=== PATIENT | male | born 1940 | race Caucasian/White ===

== ENCOUNTER → 2019-06-14 | Outpatient (CLI) | payer MEDICARE, OTHER ==
[~2019-06-14] MED LIST: ALBU90OI INH; ASPI325 PO; CAL MAG ZINC +1 EAC1 PO; CEFUROXIME PO; Ceftriaxone2 G1; Depo-Testos200 MG/ML IM; FURO80 PO; GUAI600T33 PO; HYDR1TAB94 PO; LISI20 PO; MAGOXI400 PO; MELA3 PO; METPRE4DP PO; MULVITMIND PO; NEBI5 PO; NIFE60ER PO; PANT40 PO; POTCHL20ER PO; Percocet 10-321 EACH PO; SACC250C PO; SIMV10 PO; SPIR50 PO
[2019-06-14 18:39] LABS: Body Fluid Crystals POS (NEGATIVE)
[2019-06-14 19:01] LABS: WBC Count, Synovial Fluid 159 /mm3 (0-180)
[2019-06-14 19:26] LABS: Appearance, Synovial Fluid Clear (Clear); Color, Synovial Fluid Yellow (None-P Yel); RBC Count, Synovial Fluid 83 /mm3 (0-0)
[2019-06-14 19:31] LABS: Lymphs, Synovial Fluid 33 % (0-15); Monocytes/Macrophages, Synovia 32 % (0-65); Neutrophils, Synovial Fluid 34 % (0-24); Other Cells, Synovial Fluid 1 % (0-0)
== END | disposition home or self-care (01) ==
LOC: LAB 12:00 → LAB SHORT 12:00
PROVIDERS: Internal Medicine
DX: M17.0 Bilateral primary osteoarthritis of knee (principal); M25.461 Effusion, right knee; M25.462 Effusion, left knee
CPT/HCPCS: 87205; 89051; 89060

== ENCOUNTER 2020-07-13 10:37 | Day surgery (SDC) | payer MEDICARE, OTHER ==
[~2020-07-13] VITALS: Ht 177.8 cm; Wt 101.2 kg
[~2020-07-13 10:37] MED LIST changes: +ALLO100 PO; +GABA300 PO
--- NOTE | 2020-07-13 18:40 | NUR ---
ADMIT NOTE PT ADMIT TO UNIT POST OP RIGHT TOTAL KNEE REPLACEMENT. PATIENT GROGGY WHEN IN ROOM. ABLE TO WIGGLE RIGHT FOOT AND TOES. REPORTS SENSATION TO RIGHT FOOT AND RIGHT THIGH. VSS. 2L O2 VIA NC. AQUACEL, UNA HOSE, PAS, AND POLAR PACK IN PLACE TO RIGHT LEG. IV FLUIDS RUNNING. DENIES PAIN AT THIS TIME. PT ASSISTED TO CALL FAMILY MEMBERS ON CELL PHONE. RESTING IN BED AT THIS TIME.
[2020-07-14 03:47] LABS: BASOPHILS ABSOLUTE AUTO 0.02 K/mm3 (0.00-0.23); BASOPHILS PERCENT AUTO 0 % (0-2); EOSINOPHILS PERCENT AUTO 0 % (0-6); Hematocrit 37.2 % (37.0-53.0); Hemoglobin 12.4 g/dL (13.5-17.5); IMMATURE GRAN ABSOLUTE AUTO 0.07 K/mm3 (0.00-0.10); IMMATURE GRAN PERCENT AUTO 1 % (0-1); LYMPHOCYTES ABSOLUTE AUTO 0.66 K/mm3 (0.84-5.20); LYMPHOCYTES PERCENT AUTO 4 % (21-46); MONOCYTES ABSOLUTE AUTO 0.98 K/mm3 (0.16-1.47); MONOCYTES PERCENT AUTO 6 % (4-13); Mean Corpuscular HGB 32.3 pg (26.0-34.0); Mean Corpuscular HGB Conc 33.3 g/dL (31.5-36.5); Mean Corpuscular Volume 97 fL (80-100); Mean Platelet Volume 10.5 fL (9.1-12.4); NEUTROPHILS ABSOLUTE AUTO 13.53 K/mm3 (1.96-9.15); NEUTROPHILS PERCENT AUTO 89 % (41-73); Platelet Count 202 K/mm3 (150-400); RDW Coefficient Variation 14.1 % (11.7-14.2); RDW Standard Deviation 50.4 fL (35.1-46.3); Red Blood Cell Count 3.84 M/mm3 (4.30-5.90); White Blood Cell Count 15.26 K/mm3 (4.00-11.30)
--- NOTE | 2020-07-14 03:51 | NUR ---
SHIFT SUMMARY A/OX4, PLEASANT AND COOPERATIVE WITH CARE. SLEPT T/O THE NIGHT. MEDICATED FOR PAIN PER EMAR. DRESSINGS TO R. LEG C/D/I. VSS, NO ACUTE CHANGES AT THIS TIME. BED IN LOWEST POSITION WITH CALL LIGHT IN REACH. WILL CONTINUE TO MONITOR AND REPORT TO ONCOMING RN.
[2020-07-14 04:00] LABS: Anion Gap 2 mmol/L (6-16); Blood Urea Nitrogen 14 mg/dL (8-24); Bun/Creatinine Ratio 17.4 (12.0-20.0); CO2, Blood 29 mmol/L (21-32); Calcium, Blood 8.1 mg/dL (8.5-10.1); Chloride, Blood 106 mmol/L (98-108); Glomerular Filtration Rate >60 (60-); Glucose, Blood 132 mg/dL (70-99); Magnesium, Blood 1.9 mg/dL (1.6-2.4); Potassium, Blood 4.7 mmol/L (3.5-5.5); Sodium, Blood 137 mmol/L (136-145)
--- NOTE | 2020-07-14 12:48 | NUR ---
07/14/20 1248 Jenni Kee VERIFICATIONS: EDIT CHART.
--- NOTE | 2020-07-14 18:21 | NUR ---
SHIFT SUMMARY PT A/O X4; PLEASANT AND COOPERATIVE WITH CARE. PT CLEARED BY PHYSICAL THERAPY TO LEAVE TODAY BUT HAS NOT BEEN ABLE TO VOID ON HIS OWN. RAMIREZ CATHETER PLACED AND PT IS TO RECEIVE BLADDER TRAINING OVER NIGHT. PT ALSO EXPERIENCING BLEEDING AT HIS INCISION SITE. SURGEON NOTIFIED AND NEW DRESSING WITH ADDITONAL COMPRESSION APPLIED. VSS.
--- NOTE | 2020-07-15 05:14 | NUR ---
SHIFT SUMMARY: SIN IS A&OX4. VSS, NO ACUTE EVENTS OVERNIGHT. RAMIREZ PATENT, BLADDER TRAINING IN PROGRESS. HE REPORTS ADEQUATE PAIN CONTROL WITH APAP, TORADOL, AND OXYCODONE. ONE PERSON ASSIST WITH THE GAIT BELT AND FWW, TOLERATING PO INTAKE WELL. LATOYA WRAP TO R KNEE WITH NO NEW DRAINAGE, UNA HOSE AND PAS IN PLACE. HE IS LYING IN BED WITH HIS CALL LIGHT IN REACH. WILL REPORT TO DAY SHIFT RN.
[2020-07-15] MEDS ORDERED: ACET500 PO (12:45)
[2020-07-15] MEDS ORDERED: OXAYDO5 M1 PO (12:45)
--- NOTE | 2020-07-15 13:42 | NUR ---
DISCHARGE NOTE: PATIENT WAS EDUCATED ON DISCHARGE INSTRUCTIONS. HE VERBALIZED UNDERSTANDING OF INSTRUCTIONS. HE IS ALERT AND ORIENTED X4. VS ARE WNL AND IS ON RA. PAIN IS CONTROLLED WITH PO NARCOTICS. HE HAS HIS HARD PERSCRIPTIONS IN HIS FOLDER THAT IS WITH HIS ITEMS. HE IS DRESSED AND SITTING UP IN THE CHAIR. PATIENT IS CURRENTLY WAITING FOR FAMILY TO COME AND PICK HIM UP AT 1400. ONCE FAMILY IS HERE HE WILL BE WHEELCHAIRED OUT TO THE CAR. IV WAS DISCONTINUED AND IS WNL.
[2020-09-30] MEDS ORDERED: MELATONIN5 M1 PO (09:50)
[2020-09-30] MEDS ORDERED: CALCIUM MAGNES1 EAC1 PO (09:50)
[2020-09-30] MEDS ORDERED: ZOCOR20 MG PO (09:51)
[2020-09-30] MEDS ORDERED: ALLO100 PO (09:51)
[2020-09-30] MEDS ORDERED: ANDRODERM1 EAC3 (09:51)
[2020-09-30] MEDS ORDERED: LISI20 PO (09:51)
[2020-09-30] MEDS ORDERED: FURO80 PO (09:52)
[2020-09-30] MEDS ORDERED: NIFE60ER PO (09:53)
[2020-09-30] MEDS ORDERED: POTCHL20ER PO (09:55)
[2020-09-30] MEDS ORDERED: Aspirin325 MG PO (09:57)
[2020-09-30] MEDS ORDERED: GABA100 PO (10:21)
[2020-09-30] MEDS ORDERED: DEPO-TESTO200 MG/14 IM (10:22)
== END 2020-07-15 14:37 | disposition home or self-care (01) ==
LOC: ORSCMMR 10:37 → SURS 10:47 → PRE IP 10:47 → SURS 07-15 14:37 → ORSCMMR 07-15 14:37
PROVIDERS: Orthopaedic Surgery
PROC: 0SRC0J9 Replacement of Right Knee Joint with Synthetic Substitute, Cemented, Open Approach (ICD-10-PCS; principal; 2020-07-13 13:45)
PROC: 8E0Y0CZ Robotic Assisted Procedure of Lower Extremity, Open Approach (ICD-10-PCS; principal; 2020-07-13 13:45)
DX: M17.11 Unilateral primary osteoarthritis, right knee (principal); I10 Essential (primary) hypertension; J44.9 Chronic obstructive pulmonary disease, unspecified; Z87.891 Personal history of nicotine dependence; G47.33 Obstructive sleep apnea (adult) (pediatric); E78.5 Hyperlipidemia, unspecified; Z79.899 Other long term (current) drug therapy; Z79.82 Long term (current) use of aspirin
CPT/HCPCS: 27447; S2900; 36415; 73560-RT; 80048; 83735; 85025; 97110; 97110-CQ; 97116; 97116-CQ; 97162; 97530; 97530-CQ; A9270; C1713; C1776; J0171; J0690; J0735; J1100; J1885; J2250; J2370; J2405; J2704; J2795; J3010; J7120

== ENCOUNTER 2020-10-12 06:06 | Day surgery (SDC) | payer MEDICARE, OTHER ==
[~2020-10-12] VITALS: Ht 175.3 cm; Wt 99.1 kg
[~2020-10-12 06:06] MED LIST changes: +ACET500 PO; +ANDRODERM1 EAC3; +Aspirin325 MG PO; +CALCIUM MAGNES1 EAC1 PO; +DEPO-TESTO200 MG/14 IM; +GABA100 PO; +MELATONIN5 M1 PO; +OXAYDO5 M1 PO; +ZOCOR20 MG PO
[2020-10-12] MEDS ORDERED: Aspir 8181 MG PO (06:40)
--- NOTE | 2020-10-12 06:50 | NUR ---
Ambulatory in Day Surgery WITH CANE, NAME TAG PLACED ON CANE. History, Chart, Medications and Allergies reviewed before start of procedure. Lungs clear T/O to Auscultation. Patient confirms NPO status and agrees with scheduled surgery. Pre-Op teaching done. Pt verbalizes understanding.
--- NOTE | 2020-10-12 10:07 | NUR ---
10/12/20 Mimi Mac NO SPECIMEN TO SEND PER SURGEON. RBVO TO SR. STEPHEN M.D./CHIN YODER
--- NOTE | 2020-10-12 11:30 | NUR ---
pt transferred to room on own bed, a/o x 4, pleasant/cooperative; pt oriented to room/call light. pt denies pain r/t spinal anesthesia, is unable to wiggle toes at this time. post op vs commenced and stable. operative limb baseline temp, pink, cap refill <3 sec. dressing c/d/i.
--- NOTE | 2020-10-12 17:09 | NUR ---
SHIFT SUMMARY: VSS, NO ACUTE CHANGES. PT REMAINED A/O X 4, PLEASANT/COOPERATIVE, AT BASELINE NEURO. PATIENT COMPLETED HIS FIRST ROUND OF PT, HAS VOIDED >300 ML URINE, IS TOLERATED PO INTAKE WITH NO N/V. PT REPORTS PAIN CONTROLLED "WELL" PER MAR. PT IS UP IN CHAIR CURRENTLY. PT'S FAMILY MEMBERS HAVE VISITED THIS SHIFT, THERAPY CLAIMS ADJUSTER HERE FOR FIRST THERAPY SESSION. L KNEE AQUACELL DRESSING COVERED WITH LATOYA BANDAGE C/D/I. CRYOTHERAPY, JUAN BOYD IN PLACT. SECOND DOSE OF TXA COMPLETED PER MAY.
--- NOTE | 2020-10-13 04:18 | NUR ---
SHIFT SUMMARY PT HAS RESTED WELL T/O NIGHT. 1 ROXICODONE FOR PAIN MANAGEMENT. LATOYA WRAP TO LEFT KNEE REMAINS CDI WITH POLAR PACK IN PLACE. UP WITH 1 MINIMAL ASSIST USING FWW + GB. GUERO REG DIET. IV SL. PLAN TO DISCHARGE HOME TODAY. CALL LIGHT WITHIN REACH.
[2020-10-13 04:52] LABS: BASOPHILS ABSOLUTE AUTO 0.04 K/mm3 (0.00-0.23); BASOPHILS PERCENT AUTO 0 % (0-2); EOSINOPHILS ABSOLUTE AUTO 0.26 K/mm3 (0.00-0.68); EOSINOPHILS PERCENT AUTO 3 % (0-6); Hematocrit 40.9 % (37.0-53.0); Hemoglobin 13.7 g/dL (13.5-17.5); IMMATURE GRAN ABSOLUTE AUTO 0.03 K/mm3 (0.00-0.10); IMMATURE GRAN PERCENT AUTO 0 % (0-1); LYMPHOCYTES ABSOLUTE AUTO 0.74 K/mm3 (0.84-5.20); LYMPHOCYTES PERCENT AUTO 7 % (21-46); MONOCYTES PERCENT AUTO 8 % (4-13); Mean Corpuscular HGB 32.5 pg (26.0-34.0); Mean Corpuscular HGB Conc 33.5 g/dL (31.5-36.5); Mean Corpuscular Volume 97 fL (80-100); Mean Platelet Volume 10.6 fL (9.1-12.4); NEUTROPHILS ABSOLUTE AUTO 8.67 K/mm3 (1.96-9.15); NEUTROPHILS PERCENT AUTO 82 % (41-73); Platelet Count 176 K/mm3 (150-400); RDW Coefficient Variation 14.3 % (11.7-14.2); Red Blood Cell Count 4.22 M/mm3 (4.30-5.90); White Blood Cell Count 10.54 K/mm3 (4.00-11.30)
[2020-10-13 05:14] LABS: Anion Gap 3 mmol/L (6-16); Blood Urea Nitrogen 14 mg/dL (8-24); Bun/Creatinine Ratio 17.6 (12.0-20.0); CO2, Blood 30 mmol/L (21-32); Calcium, Blood 8.1 mg/dL (8.5-10.1); Chloride, Blood 105 mmol/L (98-108); Creatinine, Blood 0.79 mg/dL (0.60-1.20); Glomerular Filtration Rate >60 (60-); Glucose, Blood 104 mg/dL (70-99); Magnesium, Blood 1.9 mg/dL (1.6-2.4); Potassium, Blood 3.8 mmol/L (3.5-5.5); Sodium, Blood 138 mmol/L (136-145)
[2020-10-13] MEDS ORDERED: ACET500 PO (09:51)
[2020-10-13] MEDS ORDERED: OXYC5 PO (09:52)
--- NOTE | 2020-10-13 12:26 | NUR ---
DISCHARGE PT PROVIDED WITH WRITTEN AND VERBAL DISCHARGE INSTRUCTIONS, PT AND FAMILY REPORTED UNDERSTANDING. PT CLEARED THERAPY AND MET ALL GOALS. HOME HEALTH WAS ARRANGED. DRESSINGS SENT HOME. PT EDUCATED TO TAKE ASPIRIN 81MG BID X1 MONTH, THEN RESUME HIS ORIGINAL DOSING OF ASA DAILY. PAIN MANAGED AT TIME OF DISCHARGE. PT ALERT, ORIENTED AND PLEASED WITH DISCHARGE PLAN. PT'S SPOUSE AND DAUGHTER PRESENT AND SUPPORTIVE DURING DISCHARGE PROCESS. PT ESCORTED OUT IN W/C.
== END 2020-10-13 12:20 | disposition home or self-care (01) ==
LOC: ORSCMMR 06:06 → ORD 07:30 → ORSCMMR 07:30 → SURS 11:24 → ORSCMMR 10-13 12:20
PROVIDERS: Orthopaedic Surgery
PROC: 0SRD0JA Replacement of Left Knee Joint with Synthetic Substitute, Uncemented, Open Approach (ICD-10-PCS; principal; 2020-10-12 07:30)
PROC: 8E0YXBZ Computer Assisted Procedure of Lower Extremity (ICD-10-PCS; principal; 2020-10-12 07:30)
DX: M17.12 Unilateral primary osteoarthritis, left knee (principal); I10 Essential (primary) hypertension; G47.33 Obstructive sleep apnea (adult) (pediatric); E78.5 Hyperlipidemia, unspecified; E66.9 Obesity, unspecified; Z68.32 Body mass index [BMI] 32.0-32.9, adult; Z79.82 Long term (current) use of aspirin; Z79.899 Other long term (current) drug therapy
CPT/HCPCS: 36415; 73560-LT; 80048; 83735; 85025; 97110; 97116; 97162; 97530; A9270; C1713; C1776; J0171; J0690; J0735; J1170; J1885; J2370; J2704; J2795; J3010; J7120

== ENCOUNTER 2020-10-16 12:17 | Inpatient (IN) | payer MEDICARE, OTHER ==
[~2020-10-16] VITALS: Ht 177.8 cm; Wt 99.4 kg
[~2020-10-16 12:17] MED LIST changes: +Aspir 8181 MG PO; +OXYC5 PO
--- NOTE | 2020-10-16 13:22 | NUR ---
PT ADMITTED TO ROOM 233. A/O X4. OREINTED TO ROOM AND CALL LIGHT. DENIES PAIN AT THIS TIME. LATOYA WRAP AND GAUZE DRESSING IN PLACE TO L KNEE. PT REPORTS KNEE BLEEDING AT HOME, STATES IT SHADOWED THROUGH TWO LAYERS OF LATOYA WRAP PRIOR TO VISITING DR MITCHELL THIS MORNING.
--- NOTE | 2020-10-16 14:40 | NUR ---
ICE PACK IN PLACE, L LEG ELEVATED ON PILLOWS.
[2020-10-16 14:54] LABS: BASOPHILS ABSOLUTE AUTO 0.03 K/mm3 (0.00-0.23); BASOPHILS PERCENT AUTO 0 % (0-2); EOSINOPHILS ABSOLUTE AUTO 0.21 K/mm3 (0.00-0.68); EOSINOPHILS PERCENT AUTO 2 % (0-6); Hematocrit 38.8 % (37.0-53.0); Hemoglobin 12.8 g/dL (13.5-17.5); IMMATURE GRAN ABSOLUTE AUTO 0.04 K/mm3 (0.00-0.10); IMMATURE GRAN PERCENT AUTO 0 % (0-1); LYMPHOCYTES ABSOLUTE AUTO 0.84 K/mm3 (0.84-5.20); LYMPHOCYTES PERCENT AUTO 7 % (21-46); MONOCYTES ABSOLUTE AUTO 0.95 K/mm3 (0.16-1.47); MONOCYTES PERCENT AUTO 8 % (4-13); Mean Corpuscular HGB 31.8 pg (26.0-34.0); Mean Corpuscular Volume 97 fL (80-100); Mean Platelet Volume 10.7 fL (9.1-12.4); NEUTROPHILS ABSOLUTE AUTO 9.29 K/mm3 (1.96-9.15); NEUTROPHILS PERCENT AUTO 82 % (41-73); Platelet Count 234 K/mm3 (150-400); RDW Coefficient Variation 13.8 % (11.7-14.2); RDW Standard Deviation 49.3 fL (35.1-46.3); Red Blood Cell Count 4.02 M/mm3 (4.30-5.90); White Blood Cell Count 11.36 K/mm3 (4.00-11.30)
[2020-10-16 15:08] LABS: Anion Gap 2 mmol/L (6-16); Blood Urea Nitrogen 16 mg/dL (8-24); Bun/Creatinine Ratio 19.5 (12.0-20.0); CO2, Blood 32 mmol/L (21-32); Calcium, Blood 9.1 mg/dL (8.5-10.1); Chloride, Blood 100 mmol/L (98-108); Creatinine, Blood 0.82 mg/dL (0.60-1.20); Glomerular Filtration Rate >60 (60-); Glucose, Blood 140 mg/dL (70-99); Potassium, Blood 4.3 mmol/L (3.5-5.5); Sodium, Blood 134 mmol/L (136-145)
--- NOTE | 2020-10-16 17:57 | NUR ---
SHIFT SUMMARY PT ADMITTED THIS AFTERNOON FOR POST-OP BLEEDING S/P L KNEE REPLACEMENT. LATOYA WRAP WITH GAUZE IN PLACE ON ADMIT, CHANGED BY DR MITCHELL AROUND 1700. PT HAS TAKEN TYLENOL FOR PAIN WITH GOOD RESULTS. HE DID REQUEST OXYCODONE, WHICH WAS ORDERED, THEN DECIDED TO WAIT TO TAKE IT. ICE PACK IN PLACE, LEG ELEVATED ON PILLOWS. PT USING URINAL TO VOID. PLAN IS TO BE NPO AT MIDNIGHT FOR POSSIBLE PROCEDURE IN MORNING. PT AGREEABLE TO THIS.
--- NOTE | 2020-10-17 00:10 | NUR ---
IV OBTAINED EASILY FIRST ATTEMPT.STRONG BLOOD RETURN, FLUSHING FREELY.18 GUAGE FOR POSSIBILITY OF OR. AFTER IV SECURED AND FLUSHED,PT REPORTED "SOME " TINGLING TO R THUMB AND FIRST FINGER. RADIAL PULSE PALBABLE AND STRONG. WIGGLES FINGERS WITHOUT DIFF. PT WIGGLED FINGERS,REPORTED TINGLING RESOLVING.HOWEVER,I HAD HOOP DRIVING MACHINE OPERATOR HELPER HERIBERTO CHECK WELL AND NOTED IV SAME MY CHECK. I QUESTIONED PT FURTHER,HE THEN REPORTED THIS IS INTERMITTENTLY HIS BASELINE AT HOME, AND ALSO REPORTED HIS L FINGERS ALSO BECAME TINGLY AFTER IV WAS PLACED.PT LAUGHING REPORTED THIS "SYMPATHY TINGLING"ALTHOUGH I HAD PT RAISE ARMS AND WIGGLE ALL FINGERS.WHICH PT THEN REPORTED BILAT TINGLING RESOLVED.ADVISED PT TO CALL ME FOR ANY CHANGES FROM HIS BASLINE.
--- NOTE | 2020-10-17 07:20 | NUR ---
RECVD REPORT FROM PREVIOUS SHIFT CHIN BECK, PT LYING IN BED, A/O X 4, PLEASANT/COOPERATIVE. PT DENIES PAIN AT THIS TIME. BED IN LOWEST POSITION, BED RAILS UP X 2, CALL LIGHT WITHIN REACH.
--- NOTE | 2020-10-17 08:05 | NUR ---
SUMMARY PT NPO. IV FLUIDS INFUSING. NO ACTIVE BLEED NOTED DURING THIS SHIFT.
--- NOTE | 2020-10-17 14:03 | NUR ---
assumed pt care pt back in the or
--- NOTE | 2020-10-17 14:52 | NUR ---
10/17/20 1452 Cyn Falcon ANCEF 2 GRAMS IVPB GIVEN BY DR Fabien SALGADO AT 1449.
--- NOTE | 2020-10-17 16:32 | NUR ---
PT ARRIVED BACK TO ROOM 233 FROM PACU S/P I&D PT REPORTS PAIN 4/10 WITH BURNING TO THE TOP OF THE KNEE AND THROBBING PT HAS A LATOYA WRAP FROM THE TOP OF THE LEG TO THE FOOT C/D/I PT REPORTS BEING HUNGRY PO OXY GIVEN WITH CRACKERS AND JELLO FAMILY AT BEDSIDE
--- NOTE | 2020-10-17 17:41 | NUR ---
PT EATING DINNER FAMILY WENT HOME MEDS GIVEN SCHED
--- NOTE | 2020-10-17 18:59 | NUR ---
no bleeding noted ice placed po tylenol given
--- NOTE | 2020-10-18 07:15 | NUR ---
RECVD REPORT FROM PREVIOUS SHIFT CHIN BECK. PT AWAKE IN BED, REPORTS PAIN CONTROLLED TO 3-4/10, TOLERABLE. NO BLEEDING/SHADOWING ON DRESSING, C/D/I. BED IN LOWETS POSITION, BED RAILS UP X 2, CALL LIGHT WITHIN REACH.
--- NOTE | 2020-10-18 07:48 | NUR ---
SUMMARY PT WITH NO BLEEDING NOTED TONIGHT.PLANNING FOR DISCHARGE TODAY.
--- NOTE | 2020-10-18 17:14 | NUR ---
shift summary: vss, no acute changes, pt remained a/o x 4, pleasant/cooperative. pt up in chair following PT for remainder of shift. follwoing PT incision bleeding from proximal knee. Dr Monteiro rounding on pt and changed dressing. pt tolerating PO intake, voiding, no bm this shift. pt rates pain at 2-3/10 following medicating per mar, rates pain tolerable.
--- NOTE | 2020-10-19 08:02 | NUR ---
SUMMARY NO ACUTE CHANGES THIS SHIFT.
[2020-10-19 09:24] LABS: International Normalized Ratio 1.02
[2020-10-19 10:06] LABS: BASOPHILS ABSOLUTE AUTO 0.09 K/mm3 (0.00-0.23); BASOPHILS PERCENT AUTO 1 % (0-2); EOSINOPHILS ABSOLUTE AUTO 0.29 K/mm3 (0.00-0.68); EOSINOPHILS PERCENT AUTO 3 % (0-6); Hematocrit 38.1 % (37.0-53.0); Hemoglobin 12.2 g/dL (13.5-17.5); IMMATURE GRAN ABSOLUTE AUTO 0.03 K/mm3 (0.00-0.10); IMMATURE GRAN PERCENT AUTO 0 % (0-1); LYMPHOCYTES ABSOLUTE AUTO 1.31 K/mm3 (0.84-5.20); LYMPHOCYTES PERCENT AUTO 13 % (21-46); MONOCYTES ABSOLUTE AUTO 0.87 K/mm3 (0.16-1.47); MONOCYTES PERCENT AUTO 8 % (4-13); Mean Corpuscular HGB 31.2 pg (26.0-34.0); Mean Corpuscular Volume 97 fL (80-100); Mean Platelet Volume 10.1 fL (9.1-12.4); NEUTROPHILS ABSOLUTE AUTO 7.71 K/mm3 (1.96-9.15); NEUTROPHILS PERCENT AUTO 75 % (41-73); Platelet Count 310 K/mm3 (150-400); RDW Coefficient Variation 13.7 % (11.7-14.2); RDW Standard Deviation 49.1 fL (35.1-46.3); Red Blood Cell Count 3.91 M/mm3 (4.30-5.90)
--- NOTE | 2020-10-19 11:25 | NUR ---
dr matthews roundmiah on pt, changed dressing, dc home today with orders to minimalize walking, restricted to bathroom visits/walking in house 5 x a day, avoid stairs. This RN will instruct pt's on unwrapping/rewrapping dressing as needed and provide supplies.
--- NOTE | 2020-10-19 13:31 | NUR ---
provided pt and family members with discharge instructions, printed materials, and demonstration/talk back in dressing changes; family members state understanding of this. provided dressing change supplies, pt's daugher took pt's belongings to vehicle; pt transported to awaiting vehicle via wheelchair
== END 2020-10-19 13:32 | disposition home or self-care (01) | DRG 908 ==
LOC: SURS 12:17
PROVIDERS: Orthopaedic Surgery; ADMIT Orthopaedic Surgery
PROC: 0SBD0ZZ Excision of Left Knee Joint, Open Approach (ICD-10-PCS; 2020-10-17)
PROC: 0S9D0ZZ Drainage of Left Knee Joint, Open Approach (ICD-10-PCS; principal; 2020-10-17 11:30)
DX: M96.840 Postprocedural hematoma of a musculoskeletal structure following a musculoskeletal system procedure (principal); E87.1 Hypo-osmolality and hyponatremia; Y83.8 Other surgical procedures as the cause of abnormal reaction of the patient, or of later complication, without mention of misadventure at the time of the procedure; M65.862 Other synovitis and tenosynovitis, left lower leg; G47.33 Obstructive sleep apnea (adult) (pediatric); E78.5 Hyperlipidemia, unspecified; I10 Essential (primary) hypertension; M10.9 Gout, unspecified; E29.1 Testicular hypofunction; J44.9 Chronic obstructive pulmonary disease, unspecified; M21.379 Foot drop, unspecified foot; Z79.899 Other long term (current) drug therapy
CPT/HCPCS: 36415; 80048; 83735; 85025; 85610; 85730; 87070; 87075; 87205; 97110; 97116; 97162; 97530; A9270; J0690; J1100; J1885; J2250; J2370; J2405; J2704; J3010; J7030; J7120

== ENCOUNTER 2021-10-19 08:12 | Day surgery (SDC) | payer MEDICARE, OTHER ==
[~2021-10-19] VITALS: Ht 177.8 cm; Wt 101.8 kg
[2021-10-19] MEDS ORDERED: ASPI81CH PO (08:46)
--- NOTE | 2021-10-19 08:55 | NUR ---
10/19/21 0855 Dez Mendieta CALL LIGHT WITHIN REACH. NELLY AT 0846 IN RIGHT EYE. RUSSEL AT 0849 IN RIGHT EYE
== END 2021-10-19 10:25 | disposition home or self-care (01) ==
LOC: ORSCSDS 08:12
PROVIDERS: Ophthalmology
PROC: 08RJ3JZ Replacement of Right Lens with Synthetic Substitute, Percutaneous Approach (ICD-10-PCS; principal; 2021-10-19 09:30)
DX: H25.11 Age-related nuclear cataract, right eye (principal); E78.5 Hyperlipidemia, unspecified; I10 Essential (primary) hypertension; Z79.899 Other long term (current) drug therapy; Z79.82 Long term (current) use of aspirin; J44.9 Chronic obstructive pulmonary disease, unspecified; G47.33 Obstructive sleep apnea (adult) (pediatric); Z87.891 Personal history of nicotine dependence
CPT/HCPCS: J2001; J2250; J3010; J3301; J7040; V2632

== ENCOUNTER 2021-11-04 08:22 | Day surgery (SDC) | payer MEDICARE, OTHER ==
[~2021-11-04] VITALS: Ht 177.8 cm; Wt 100.9 kg
[~2021-11-04 08:22] MED LIST changes: +ASPI81CH PO
--- NOTE | 2021-11-04 08:56 | NUR ---
11/04/21 0856 Dez Mendieta CALL LIGHT WITHIN RECH. TETRACAINE AT 0849 IN THE LEFT EYE PLEESVIN AT 0850
== END 2021-11-04 10:11 | disposition home or self-care (01) ==
LOC: ORSCSDS 08:22
PROVIDERS: Ophthalmology
PROC: 08RK3JZ Replacement of Left Lens with Synthetic Substitute, Percutaneous Approach (ICD-10-PCS; principal; 2021-11-04 09:30)
DX: H25.12 Age-related nuclear cataract, left eye (principal); Z96.1 Presence of intraocular lens; I10 Essential (primary) hypertension; J44.9 Chronic obstructive pulmonary disease, unspecified; G47.33 Obstructive sleep apnea (adult) (pediatric); E78.5 Hyperlipidemia, unspecified; E66.9 Obesity, unspecified; Z68.31 Body mass index [BMI] 31.0-31.9, adult; Z79.82 Long term (current) use of aspirin; Z87.891 Personal history of nicotine dependence; Z79.899 Other long term (current) drug therapy
CPT/HCPCS: J2001; J2250; J3010; J3301; J7040; V2632

== ENCOUNTER 2022-01-13 22:26 | Emergency (ER) | payer MEDICARE, OTHER ==
[~2022-01-13] VITALS: Ht 177.8 cm; Wt 95.2 kg
[2022-01-13] MEDS ORDERED: GLUCHON PO (22:54)
[2022-01-13 22:59] LABS: BASOPHILS PERCENT AUTO 1 % (0-2); EOSINOPHILS PERCENT AUTO 2 % (0-6); Hematocrit 46.3 % (37.0-53.0); Hemoglobin 15.9 g/dL (13.5-17.5); IMMATURE GRAN PERCENT AUTO 0 % (0-1); LYMPHOCYTES PERCENT AUTO 11 % (21-46); MONOCYTES PERCENT AUTO 7 % (4-13); Mean Corpuscular HGB 32.6 pg (26.0-34.0); Mean Corpuscular HGB Conc 34.3 g/dL (31.5-36.5); Mean Corpuscular Volume 95 fL (80-100); Mean Platelet Volume 11.4 fL (9.1-12.4); NEUTROPHILS PERCENT AUTO 79 % (41-73); Platelet Count 165 K/mm3 (150-400); Red Blood Cell Count 4.88 M/mm3 (4.30-5.90); White Blood Cell Count 8.74 K/mm3 (4.00-11.30)
[2022-01-13 23:00] LABS: BASOPHILS ABSOLUTE AUTO 0.06 K/mm3 (0.00-0.23); IMMATURE GRAN ABSOLUTE AUTO 0.02 K/mm3 (0.00-0.10); LYMPHOCYTES ABSOLUTE AUTO 0.99 K/mm3 (0.84-5.20); MONOCYTES ABSOLUTE AUTO 0.61 K/mm3 (0.16-1.47); NEUTROPHILS ABSOLUTE AUTO 6.86 K/mm3 (1.96-9.15)
[2022-01-13 23:17] LABS: Alanine Aminotransfer (ALT/SGP 28 U/L (12-78); Albumin, Blood 3.4 g/dL (3.4-5.0); Alk Phos 54 U/L (50-136); Anion Gap 6 mmol/L (6-16); Aspartate Aminotrans (AST/SGOT 24 U/L (12-37); Bilirubin, Total 0.7 mg/dL (0.1-1.0); Blood Urea Nitrogen 11 mg/dL (8-24); Bun/Creatinine Ratio 15.9 (12.0-20.0); CO2, Blood 26 mmol/L (21-32); Calcium, Blood 9.1 mg/dL (8.5-10.1); Chloride, Blood 107 mmol/L (98-108); Creatinine, Blood 0.69 mg/dL (0.60-1.20); Ethanol (Alcohol), Blood, Med <3 mg/dL; Globulin, Blood 3.3 g/dL (2.2-4.0); Glomerular Filtration Rate 92 (60-); Glucose, Blood 113 mg/dL (70-99); Potassium, Blood 4.3 mmol/L (3.5-5.5); Sodium, Blood 139 mmol/L (136-145); Total Protein, Blood 6.7 g/dL (6.4-8.2)
[2022-01-13 23:18] LABS: Source, Urine Clean Catch
[2022-01-13 23:25] LABS: Bilirubin, Urine Neg (Neg); Blood, Urine 1+ (Neg); Glucose Qualitative, Urine Neg (Neg); Ketones, Urine 1+ (Neg); Leukocyte Esterase, Urine Neg (Neg); Nitrite, Urine Neg (Neg); Protein, Urine 2+ (Neg); Specific Gravity, Urine 1.015 (1.003-1.022); Urobilinogen, Urine 1+ (Normal)
[2022-01-13 23:31] LABS: Appearance, Urine Clear (Clear); Color, Urine Yellow (P-Yellow)
[2022-01-13 23:33] LABS: Bacteria Not Seen /hpf; Red Blood Cells, Urine 0-2 /hpf (0-2); Squamous Epithelial Cells Not Seen /hpf (Few); White Blood Cells, Urine Not Seen /hpf (0-5)
[2022-01-13 23:59] LABS: Creatine Kinase MB 4.2 ng/mL (0.0-3.6); Creatine Kinase MB Index 2.3 (0.0-4.0)
[2022-01-14 00:09] LABS: Influenza A, PCR NEGATIVE (NEGATIVE); Influenza B, PCR NEGATIVE (NEGATIVE); Resp Syncytial Virus, PCR NEGATIVE (NEGATIVE); SARS-Cov-2 (COVID-19) PCR, MMC NEGATIVE (NEGATIVE)
[2022-01-14 00:40] LABS: International Normalized Ratio 1.11; Prothrombin Time Results 11.6 Sec (9.7-11.5)
== END 2022-01-14 21:58 | disposition home or self-care (01) ==
LOC: ER 22:26
PROVIDERS: Emergency Medicine; Student in an Organized Health Care Education/Training Program
DX: R41.82 Altered mental status, unspecified (principal); Z79.82 Long term (current) use of aspirin; Z79.899 Other long term (current) drug therapy; I10 Essential (primary) hypertension; M10.9 Gout, unspecified; G47.30 Sleep apnea, unspecified; E78.00 Pure hypercholesterolemia, unspecified; J44.9 Chronic obstructive pulmonary disease, unspecified
CPT/HCPCS: 0241U; 36415; 70450; 71045; 80053; 81001; 82550; 82553; 83605; 83690; 83880; 84145; 84484; 85025; 85610; 93005; 93010; G0480

== ENCOUNTER → 2023-12-13 | Outpatient (CLI) | payer MEDICARE, OTHER ==
[~2023-12-13] MED LIST changes: +AMOCLA875 PO; +GLUCHON PO; +TAMS.4ER PO
[2023-12-13 22:01] LABS: Albumin, Blood 3.4 g/dL (3.4-5.0); Anion Gap 11 mmol/L (3-11); Blood Urea Nitrogen 11 mg/dL (8-24); Bun/Creatinine Ratio 15.7 (12.0-20.0); CO2, Blood 27 mmol/L (21-32); Calcium, Blood 9.2 mg/dL (8.5-10.1); Chloride, Blood 106 mmol/L (98-108); Glomerular Filtration Rate 90 (60-); Glucose, Blood 158 mg/dL (70-99); Phosphorus, Blood 2.8 mg/dL (2.5-4.9); Potassium, Blood 3.9 mmol/L (3.5-5.5); Sodium, Blood 140 mmol/L (136-145)
== END ==
LOC: LAB 17:30 → LAB SHORT 17:30
PROVIDERS: Internal Medicine
DX: I50.32 Chronic diastolic (congestive) heart failure (principal)
CPT/HCPCS: 80069

== ENCOUNTER → 2024-04-03 | Outpatient (CLI) | payer MEDICARE, OTHER ==
[2024-04-03 15:16] LABS: BASOPHILS ABSOLUTE AUTO 0.08 K/mm3 (0.00-0.23); BASOPHILS PERCENT AUTO 1 % (0-2); EOSINOPHILS ABSOLUTE AUTO 0.38 K/mm3 (0.00-0.68); EOSINOPHILS PERCENT AUTO 5 % (0-6); Hematocrit 52.5 % (37.0-53.0); Hemoglobin 17.5 g/dL (13.5-17.5); IMMATURE GRAN ABSOLUTE AUTO 0.02 K/mm3 (0.00-0.10); IMMATURE GRAN PERCENT AUTO 0 % (0-1); LYMPHOCYTES ABSOLUTE AUTO 1.17 K/mm3 (0.84-5.20); LYMPHOCYTES PERCENT AUTO 15 % (21-46); MONOCYTES ABSOLUTE AUTO 0.61 K/mm3 (0.16-1.47); MONOCYTES PERCENT AUTO 8 % (4-13); Mean Corpuscular HGB 31.8 pg (26.0-34.0); Mean Corpuscular HGB Conc 33.3 g/dL (31.5-36.5); Mean Corpuscular Volume 96 fL (80-100); Mean Platelet Volume 11.1 fL (9.1-12.4); NEUTROPHILS ABSOLUTE AUTO 5.83 K/mm3 (1.96-9.15); NEUTROPHILS PERCENT AUTO 72 % (41-73); Platelet Count 248 K/mm3 (150-400); RDW Coefficient Variation 16.9 % (11.7-14.2); RDW Standard Deviation 58.6 fL (35.1-46.3); White Blood Cell Count 8.09 K/mm3 (4.00-11.30)
[2024-04-03 15:36] LABS: Alanine Aminotransfer (ALT/SGP 30 U/L (12-78); Albumin, Blood 3.7 g/dL (3.4-5.0); Albumin/Globulin Ratio 1.1 (0.8-1.8); Alk Phos 44 U/L (50-136); Anion Gap 13 mmol/L (3-11); Aspartate Aminotrans (AST/SGOT 20 U/L (12-37); Bilirubin, Total 1.1 mg/dL (0.1-1.0); Blood Urea Nitrogen 13 mg/dL (8-24); Bun/Creatinine Ratio 16.8 (12.0-20.0); CHOL/HDL RATIO 2.4; CO2, Blood 31 mmol/L (21-32); Calcium, Blood 9.6 mg/dL (8.5-10.1); Chloride, Blood 99 mmol/L (98-108); Cholesterol 160 mg/dL (50-200); Creatinine, Blood 0.78 mg/dL (0.60-1.20); Globulin, Blood 3.5 g/dL (2.2-4.0); Glomerular Filtration Rate 87 (60-); Glucose, Blood 108 mg/dL (70-99); HDL Cholesterol 67 mg/dL (>39); LDL/HDL RATIO 1.2; Low Density Lipoprotein Chol 82 mg/dL (0-110); Potassium, Blood 3.6 mmol/L (3.5-5.5); Sodium, Blood 139 mmol/L (136-145); Total Protein, Blood 7.2 g/dL (6.4-8.2); Triglycerides 57 mg/dL (30-160); Very Low Density Lipoprot Chol 11 mg/dL (6-32)
[2024-04-03 15:44] LABS: Thyroid Stimulating Hormone 0.687 uIU/mL (0.360-4.800)
== END ==
LOC: LAB 13:45 → LAB SHORT 13:45
PROVIDERS: Internal Medicine
DX: I10 Essential (primary) hypertension (principal); R73.01 Impaired fasting glucose; E78.2 Mixed hyperlipidemia; M1A.0621 Idiopathic chronic gout, left knee, with tophus (tophi)
CPT/HCPCS: 80053; 80061; 83036; 84443; 84550; 85025

== ENCOUNTER 2024-06-17 15:22 | Emergency (ER) | payer MEDICARE, OTHER ==
[~2024-06-17] VITALS: Ht 177.8 cm; Wt 97.5 kg
[2024-06-17 16:21] LABS: BASOPHILS ABSOLUTE AUTO 0.06 K/mm3 (0.00-0.23); BASOPHILS PERCENT AUTO 1 % (0-2); EOSINOPHILS ABSOLUTE AUTO 0.16 K/mm3 (0.00-0.68); EOSINOPHILS PERCENT AUTO 2 % (0-6); Hematocrit 54.9 % (37.0-53.0); Hemoglobin 18.3 g/dL (13.5-17.5); IMMATURE GRAN ABSOLUTE AUTO 0.02 K/mm3 (0.00-0.10); IMMATURE GRAN PERCENT AUTO 0 % (0-1); LYMPHOCYTES ABSOLUTE AUTO 1.14 K/mm3 (0.84-5.20); LYMPHOCYTES PERCENT AUTO 12 % (21-46); MONOCYTES ABSOLUTE AUTO 0.67 K/mm3 (0.16-1.47); MONOCYTES PERCENT AUTO 7 % (4-13); Mean Corpuscular HGB 30.4 pg (26.0-34.0); Mean Corpuscular HGB Conc 33.3 g/dL (31.5-36.5); Mean Corpuscular Volume 91 fL (80-100); Mean Platelet Volume 11.2 fL (9.1-12.4); NEUTROPHILS ABSOLUTE AUTO 7.39 K/mm3 (1.96-9.15); NEUTROPHILS PERCENT AUTO 78 % (41-73); Platelet Count 189 K/mm3 (150-400); RDW Coefficient Variation 13.8 % (11.7-14.2); RDW Standard Deviation 46.5 fL (35.1-46.3); Red Blood Cell Count 6.02 M/mm3 (4.30-5.90); White Blood Cell Count 9.44 K/mm3 (4.00-11.30)
[2024-06-17 17:20] LABS: Albumin, Blood 3.7 g/dL (3.4-5.0); Albumin/Globulin Ratio 1.2 (0.8-1.8); Bilirubin, Total 0.8 mg/dL (0.1-1.0); Bun/Creatinine Ratio 18.9 (12.0-20.0); Calcium, Blood 9.7 mg/dL (8.5-10.1); Creatinine, Blood 0.69 mg/dL (0.60-1.20); Globulin, Blood 3.2 g/dL (2.2-4.0); Potassium, Blood 3.6 mmol/L (3.5-5.5); Total Protein, Blood 6.9 g/dL (6.4-8.2)
[2024-06-17 17:37] VITALS: BP 170/120
[2024-06-17] MEDS ORDERED: HYDCHL50 PO (17:41)
== END 2024-06-17 17:50 | disposition home or self-care (01) ==
LOC: ER 15:22
PROVIDERS: Physician Assistant
DX: I10 Essential (primary) hypertension (principal); J44.9 Chronic obstructive pulmonary disease, unspecified; E78.00 Pure hypercholesterolemia, unspecified; Z79.899 Other long term (current) drug therapy
CPT/HCPCS: 80053; 84484; 85025; 93005; 93010; 99283-25

== ENCOUNTER → 2024-09-30 | Outpatient (CLI) | payer MEDICARE, OTHER ==
[~2024-09-30] MED LIST changes: +HYDCHL50 PO
== END | disposition home or self-care (01) ==
LOC: LAB 16:00 → LAB SHORT 16:00
DX: L72.3 Sebaceous cyst (principal); L08.9 Local infection of the skin and subcutaneous tissue, unspecified
CPT/HCPCS: 87070; 87075; 87077; 87147; 87186; 87205

== ENCOUNTER → 2024-11-21 | Outpatient (CLI) | payer MEDICARE, OTHER ==
[2024-11-21 18:34] LABS: BASOPHILS ABSOLUTE AUTO 0.07 K/mm3 (0.00-0.23); BASOPHILS PERCENT AUTO 1 % (0-2); EOSINOPHILS ABSOLUTE AUTO 0.30 K/mm3 (0.00-0.68); EOSINOPHILS PERCENT AUTO 3 % (0-6); Hematocrit 50.5 % (37.0-53.0); Hemoglobin 17.4 g/dL (13.5-17.5); IMMATURE GRAN ABSOLUTE AUTO 0.03 K/mm3 (0.00-0.10); IMMATURE GRAN PERCENT AUTO 0 % (0-1); LYMPHOCYTES ABSOLUTE AUTO 1.23 K/mm3 (0.84-5.20); LYMPHOCYTES PERCENT AUTO 14 % (21-46); MONOCYTES ABSOLUTE AUTO 0.34 K/mm3 (0.16-1.47); MONOCYTES PERCENT AUTO 4 % (4-13); Mean Corpuscular HGB Conc 34.5 g/dL (31.5-36.5); Mean Corpuscular Volume 94 fL (80-100); NEUTROPHILS ABSOLUTE AUTO 7.05 K/mm3 (1.96-9.15); NEUTROPHILS PERCENT AUTO 78 % (41-73); NRBC ABSOLUTE 0.00 K/mm3 (0.00-0.02); NRBC Auto 0.0 /100 WBC (0.0-0.2); Platelet Count 195 K/mm3 (150-400); RDW Coefficient Variation 16.2 % (11.7-14.2); RDW Standard Deviation 56.4 fL (35.1-46.3)
[2024-11-21 19:08] LABS: Albumin, Blood 3.8 g/dL (3.4-5.0); Anion Gap 9 mmol/L (3-11); Blood Urea Nitrogen 22 mg/dL (8-24); CO2, Blood 25 mmol/L (21-32); Calcium, Blood 9.4 mg/dL (8.5-10.1); Chloride, Blood 104 mmol/L (98-108); Creatinine, Blood 0.80 mg/dL (0.60-1.20); Glucose, Blood 185 mg/dL (70-99); Phosphorus, Blood 3.1 mg/dL (2.5-4.9); Potassium, Blood 4.3 mmol/L (3.5-5.5); Sodium, Blood 134 mmol/L (136-145)
== END ==
LOC: LAB 18:15 → LAB SHORT 18:15
PROVIDERS: Internal Medicine
DX: I11.0 Hypertensive heart disease with heart failure (principal); I50.32 Chronic diastolic (congestive) heart failure
CPT/HCPCS: 80069; 85025

== ENCOUNTER → 2025-02-14 | Outpatient (CLI) | payer MEDICARE, OTHER ==
[2025-02-14 19:51] LABS: BASOPHILS ABSOLUTE AUTO 0.07 K/mm3 (0.00-0.23); BASOPHILS PERCENT AUTO 1 % (0-2); EOSINOPHILS ABSOLUTE AUTO 0.18 K/mm3 (0.00-0.68); EOSINOPHILS PERCENT AUTO 2 % (0-6); Hematocrit 45.3 % (37.0-53.0); Hemoglobin 15.2 g/dL (13.5-17.5); IMMATURE GRAN ABSOLUTE AUTO 0.03 K/mm3 (0.00-0.10); IMMATURE GRAN PERCENT AUTO 0 % (0-1); LYMPHOCYTES ABSOLUTE AUTO 1.01 K/mm3 (0.84-5.20); LYMPHOCYTES PERCENT AUTO 11 % (21-46); MONOCYTES ABSOLUTE AUTO 0.60 K/mm3 (0.16-1.47); MONOCYTES PERCENT AUTO 6 % (4-13); Mean Corpuscular HGB Conc 33.6 g/dL (31.5-36.5); Mean Corpuscular Volume 100 fL (80-100); NEUTROPHILS ABSOLUTE AUTO 7.52 K/mm3 (1.96-9.15); NEUTROPHILS PERCENT AUTO 80 % (41-73); NRBC ABSOLUTE 0.00 K/mm3 (0.00-0.02); NRBC Auto 0.0 /100 WBC (0.0-0.2); Platelet Count 188 K/mm3 (150-400); RDW Coefficient Variation 14.4 % (11.7-14.2); RDW Standard Deviation 53.0 fL (35.1-46.3)
[2025-02-14 20:16] LABS: Alanine Aminotransfer (ALT/SGP 30 U/L (12-78); Albumin, Blood 3.7 g/dL (3.4-5.0); Albumin/Globulin Ratio 1.3 (0.8-1.8); Anion Gap 9 mmol/L (3-11); Aspartate Aminotrans (AST/SGOT 19 U/L (12-37); Bilirubin, Total 0.9 mg/dL (0.1-1.0); Blood Urea Nitrogen 28 mg/dL (8-24); CHOL/HDL RATIO 2.0; CO2, Blood 29 mmol/L (21-32); Calcium, Blood 9.2 mg/dL (8.5-10.1); Chloride, Blood 105 mmol/L (98-108); Cholesterol 141 mg/dL (50-200); Creatinine, Blood 1.02 mg/dL (0.60-1.20); Globulin, Blood 2.9 g/dL (2.2-4.0); Glucose, Blood 103 mg/dL (70-99); HDL Cholesterol 70 mg/dL (>39); LDL/HDL RATIO 0.8; Low Density Lipoprotein Chol 56 mg/dL (0-110); Potassium, Blood 4.7 mmol/L (3.5-5.5); Sodium, Blood 138 mmol/L (136-145); Total Protein, Blood 6.6 g/dL (6.4-8.2); Triglycerides 73 mg/dL (30-160); Very Low Density Lipoprot Chol 14 mg/dL (6-32)
== END ==
LOC: LAB 13:54 → LAB SHORT 13:54
PROVIDERS: Internal Medicine
DX: I10 Essential (primary) hypertension (principal); E29.1 Testicular hypofunction
CPT/HCPCS: 80053; 80061; 84403; 85025